=== PATIENT | male | born 1970 | race Caucasian/White ===

== ENCOUNTER 2017-01-11 18:54 | Emergency (ER) | payer MEDICAID ==
[~2017-01-11] VITALS: Ht 170.2 cm; Wt 81.0 kg
[2017-01-11 18:58] VITALS: Ht 170.2 cm; Wt 81.0 kg
[2017-01-11] MEDS ORDERED: NICARDipine HCL 30 MG CAPSULE PO ONE (20:00)
[2017-01-11] MEDS ORDERED: MECLIZINE 12.5 MG TAB PO ONE (20:00)
[2017-01-11] MEDS ORDERED: HYD25 PO (20:45)
[2017-01-11] MEDS ORDERED: MECL12.574 PO (20:45)
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
== END 2017-01-11 21:01 | disposition home or self-care (01) ==
LOC: FTE 18:54
DX: I10 Essential (primary) hypertension (principal); Z87.891 Personal history of nicotine dependence
CPT/HCPCS: 82962; 93005; Z7502; Z7610